=== PATIENT | female | born 1970 | race Caucasian/White ===

== ENCOUNTER 2017-11-11 01:05 | Inpatient (IN) | payer MEDICARE ==
[2017-11-11] VITALS (22 sets, daily range): BP systolic 87–145; BP diastolic 43–88; BMI 53.3
[~2017-11-11] VITALS: Ht 167.6 cm; Wt 150.3 kg
[2017-11-11] MEDS ORDERED: ALLOPURINOL PO (01:28)
[2017-11-11] MEDS ORDERED: CYMBALTA60 MG PO (03:22)
[2017-11-11] MEDS ORDERED: BUSPAR 15 MG TA15 MG PO (03:22)
[2017-11-11] MEDS ORDERED: NEURONTIN600 MG PO (03:24)
[2017-11-11] MEDS ORDERED: LASIX80 MG PO (03:24)
[2017-11-11] MEDS ORDERED: NORCO 10-325 TA1 TAB PO (03:25)
[2017-11-11] MEDS ORDERED: ATARAX 25 MG TA25 MG PO (03:28)
[2017-11-11] MEDS ORDERED: IPRAT-ALBUT 0.5-3 ML IH (03:31)
[2017-11-11] MEDS ORDERED: TOUJEO SOL300 UNIT/1 SC (03:33)
[2017-11-11] MEDS ORDERED: TRAZODONE HCL150 MG PO (03:34)
[2017-11-11] MEDS ORDERED: TRESIBA FL100 UNIT/1 SC (03:37)
[2017-11-11] MEDS ORDERED: REVATIO20 MG PO (03:38)
[2017-11-11] MEDS ORDERED: K-DUR20 MEQ PO (03:39)
[2017-11-11] MEDS ORDERED: OMEPRAZOLE20 M1 PO (03:39)
[2017-11-11] MEDS ORDERED: SYNTHROID175 MCG PO (03:40)
[2017-11-11] MEDS ORDERED: GLUCOPHAGE1000 MG PO (03:40)
[2017-11-11] MEDS ORDERED: METOPROLOL TART50 MG PO (03:41)
[2017-11-11 08:18] LABS: BASOPHILS 0.1 % (0-2); EOSINOPHILS 0.5 % (0-7); HEMATOCRIT 29.2 % (36.0-48.0); HEMOGLOBIN 9.4 g/dL (12-16); IMMATURE GRANULOCYTES 0.4 % (0-5); LYMPHOCYTES 11.8 % (15-50); MCH 28.7 pg (26.0-34.0); MCHC 32.2 g/dL (31.0-37.0); MEAN PLATELET VOLUME 9.6 fL (7.4-10.4); MONOCYTES 8.2 % (2-11); PLATELET COUNT 192 10x3/uL (130-400); RBC 3.28 10x6/uL (4.00-5.40); RDW 25.2 % (11.5-14.5); WBC 13.4 10x3/uL (4.8-10.8)
[2017-11-11 08:26] LABS: ALBUMIN 2.3 g/dL (3.4-5.0); ANION GAP 20.5 mmol/L (8-16); BILIRUBIN - TOTAL 0.88 mg/dL (0.2-1.3); CALCIUM 7.5 mg/dL (8.5-10.1); CARBON DIOXIDE 20.3 mmol/L (21.0-32.0); CREATININE - SERUM 3.5 mg/dL (0.6-1.3); MAGNESIUM - SERUM 1.5 mg/dL (1.8-2.4); PHOSPHOROUS 6.1 mg/dL (2.5-4.9); POTASSIUM - SERUM 3.8 mmol/L (3.5-5.1); PROTEIN - SERUM 5.5 g/dL (6.4-8.2)
[2017-11-11 12:17] LABS: % SATURATION 12 % (15-55); IRON 33 ug/dl (35-150); TOTAL IRON BIND CAPACITY 267 ug/dl (260-445); UNSAT IRON BIND CAPACITY 234 ug/dl (150-375)
[2017-11-11 12:33] LABS: THYROID STIMULATING HORMONE 2.83 uIU/mL (0.36-3.74)
[2017-11-11 13:38] LABS: CREATININE - URINE 86.8 mg/dL (30-125); PROTEIN - URINE 472.8 mg/dL (0.0-11.9)
[2017-11-11 13:42] LABS: APPEARANCE CLOUDY (CLEAR); BILIRUBIN NEGATIVE (NEGATIVE); COLOR DK YELLOW (YELLOW); GLUCOSE NEGATIVE (NEGATIVE); KETONE NEGATIVE (NEGATIVE); NITRITE NEGATIVE (NEGATIVE); PROTEIN 3+ mg/dL (NEGATIVE); UROBILINOGEN NORMAL (NORMAL)
[2017-11-11 13:43] LABS: BACTERIA MODERATE /hpf (NONE SEEN); EPITHELIAL CELLS 0-5 /hpf (0-5); WHITE CELLS - URINE 0-5 /hpf (0-5)
[2017-11-11 13:44] LABS: AMORPHOUS SEDIMENT <1+ /lpf (NONE SEEN)
[2017-11-12] VITALS (74 sets, daily range): BP systolic 68–183; BP diastolic 33–587
[2017-11-12 04:31] LABS: BASOPHILS 0.1 % (0-2); EOSINOPHILS 0.4 % (0-7); HEMATOCRIT 28.4 % (36.0-48.0); IMMATURE GRANULOCYTES 0.4 % (0-5); LYMPHOCYTES 5.1 % (15-50); MCH 28.1 pg (26.0-34.0); MCHC 31.7 g/dL (31.0-37.0); MCV 88.8 fL (80.0-100.0); MONOCYTES 6.3 % (2-11); NEUTROPHILS 87.7 % (40-80); PLATELET COUNT 187 10x3/uL (130-400); RDW 24.9 % (11.5-14.5); WBC 14.2 10x3/uL (4.8-10.8)
[2017-11-12 04:45] LABS: ANION GAP 19.4 mmol/L (8-16); CALCIUM 7.7 mg/dL (8.5-10.1); CARBON DIOXIDE 22.5 mmol/L (21.0-32.0); CREATININE - SERUM 3.9 mg/dL (0.6-1.3); MAGNESIUM - SERUM 1.6 mg/dL (1.8-2.4); POTASSIUM - SERUM 3.9 mmol/L (3.5-5.1)
[2017-11-12 10:06] LABS: BASOPHILS 0.2 % (0-2); EOSINOPHILS 0.2 % (0-7); HEMATOCRIT 30.3 % (36.0-48.0); HEMOGLOBIN 9.6 g/dL (12-16); IMMATURE GRANULOCYTES 1.5 % (0-5); LYMPHOCYTES 6.3 % (15-50); MCH 28.5 pg (26.0-34.0); MCHC 31.7 g/dL (31.0-37.0); MCV 89.9 fL (80.0-100.0); MEAN PLATELET VOLUME 9.8 fL (7.4-10.4); MONOCYTES 6.9 % (2-11); NEUTROPHILS 84.9 % (40-80); PLATELET COUNT 208 10x3/uL (130-400); RBC 3.37 10x6/uL (4.00-5.40); RDW 25.5 % (11.5-14.5)
[2017-11-12 10:07] LABS: WBC 19.3 10x3/uL (4.8-10.8)
[2017-11-12 10:11] LABS: APTT 31.9 SECONDS (22.8-39.4); INR 1.4 (0.85-1.17); PROTIME 16.7 SECONDS (11.6-15.0)
[2017-11-12 10:12] LABS: ALBUMIN 2.2 g/dL (3.4-5.0); ANION GAP 21.6 mmol/L (8-16); BILIRUBIN - TOTAL 0.99 mg/dL (0.2-1.3); CALCIUM 7.2 mg/dL (8.5-10.1); CARBON DIOXIDE 24.9 mmol/L (21.0-32.0); CREATININE - SERUM 4.1 mg/dL (0.6-1.3); MAGNESIUM - SERUM 1.7 mg/dL (1.8-2.4); PROTEIN - SERUM 5.2 g/dL (6.4-8.2)
[2017-11-12 10:15] LABS: POTASSIUM - SERUM 4.5 mmol/L (3.5-5.1)
[2017-11-12 10:19] LABS: D-DIMER-QUANTITATIVE 4.4 ug/mLFEU (0.20-0.54)
[2017-11-13] VITALS (91 sets, daily range): BP systolic 65–120; BP diastolic 37–622; BMI 52.8
[2017-11-13 04:47] LABS: BASOPHILS 0.1 % (0-2); EOSINOPHILS 1.5 % (0-7); HEMATOCRIT 27.4 % (36.0-48.0); HEMOGLOBIN 8.5 g/dL (12-16); IMMATURE GRANULOCYTES 0.7 % (0-5); LYMPHOCYTES 7.3 % (15-50); MCH 27.9 pg (26.0-34.0); MCV 89.8 fL (80.0-100.0); MEAN PLATELET VOLUME 9.8 fL (7.4-10.4); MONOCYTES 7.3 % (2-11); NEUTROPHILS 83.1 % (40-80); RBC 3.05 10x6/uL (4.00-5.40); RDW 25.4 % (11.5-14.5)
[2017-11-13 04:53] LABS: PLATELET COUNT 163 10x3/uL (130-400); WBC 12.6 10x3/uL (4.8-10.8)
[2017-11-13 04:56] LABS: INR 1.47 (0.85-1.17); PROTIME 17.3 SECONDS (11.6-15.0)
[2017-11-13 05:22] LABS: CALCIUM 7.5 mg/dL (8.5-10.1); CARBON DIOXIDE 21.6 mmol/L (21.0-32.0); CREATININE - SERUM 4.2 mg/dL (0.6-1.3); MAGNESIUM - SERUM 1.7 mg/dL (1.8-2.4); PHOSPHOROUS 6.3 mg/dL (2.5-4.9); VANCOMYCIN - RANDOM 7.6 ug/mL (10.0-20.0); VANCOMYCIN - TROUGH 7.6 ug/mL (10.0-20.0)
[2017-11-13 05:23] LABS: ANION GAP 18.1 mmol/L (8-16); POTASSIUM - SERUM 3.7 mmol/L (3.5-5.1); TROPONIN-I 0.237 ng/mL (0.000-0.060)
[2017-11-14] VITALS (64 sets, daily range): BP systolic 56–116; BP diastolic 20–92; Ht 167.6 cm; Wt 150.3 kg
[2017-11-14 05:09] LABS: BASOPHILS 0.1 % (0-2); EOSINOPHILS 1.1 % (0-7); HEMATOCRIT 30.9 % (36.0-48.0); HEMOGLOBIN 9.7 g/dL (12-16); IMMATURE GRANULOCYTES 2.2 % (0-5); LYMPHOCYTES 15.1 % (15-50); MCH 28.8 pg (26.0-34.0); MCHC 31.4 g/dL (31.0-37.0); MCV 91.7 fL (80.0-100.0); MEAN PLATELET VOLUME 10.3 fL (7.4-10.4); NEUTROPHILS 71.5 % (40-80); RBC 3.37 10x6/uL (4.00-5.40); RDW 25.4 % (11.5-14.5)
[2017-11-14 05:10] LABS: PLATELET COUNT 279 10x3/uL (130-400)
[2017-11-14 05:30] LABS: ANION GAP 21.5 mmol/L (8-16); CALCIUM 7.8 mg/dL (8.5-10.1); CARBON DIOXIDE 19.3 mmol/L (21.0-32.0); CREATININE - SERUM 4.7 mg/dL (0.6-1.3); VANCOMYCIN - RANDOM 12.8 ug/mL (10.0-20.0)
[2017-11-14 05:41] LABS: MAGNESIUM - SERUM 2.3 mg/dL (1.8-2.4); POTASSIUM - SERUM 4.8 mmol/L (3.5-5.1)
[2017-11-14 11:28] LABS: FOLATE (FOLIC ACID) - SERUM 5.6 ng/mL (>3.0)
[2017-11-14 13:17] LABS: ALBUMIN 1.9 g/dL (3.4-5.0); ALKALINE PHOSPHATASE 204 U/L (46-116); ALT (SGPT) 20 U/L (10-68); BILIRUBIN - TOTAL 1.67 mg/dL (0.2-1.3); CALC OSMOLALITY 272 mosm/kg (275-300); CALCIUM 7.3 mg/dL (8.5-10.1); CARBON DIOXIDE 16.7 mmol/L (21.0-32.0); CHLORIDE - SERUM 96 mmol/L (98-107); CREATININE - SERUM 5.1 mg/dL (0.6-1.3); POTASSIUM - SERUM 5.5 mmol/L (3.5-5.1); PROTEIN - SERUM 5.4 g/dL (6.4-8.2); SODIUM 130 mmol/L (136-145); UREA NITROGEN 49 mg/dL (7-18); eGFR NON AFRICAN AMERICAN 10 mL/min (90-120)
[2017-11-14 13:28] LABS: HEMATOCRIT 33.8 % (36.0-48.0); HEMOGLOBIN 10.3 g/dL (12-16); MCH 28.9 pg (26.0-34.0); MCHC 30.5 g/dL (31.0-37.0); MCV 94.7 fL (80.0-100.0); MEAN PLATELET VOLUME 10.3 fL (7.4-10.4); PLATELET COUNT 287 10x3/uL (130-400); RBC 3.57 10x6/uL (4.00-5.40); RDW 25.8 % (11.5-14.5); WBC 24.4 10x3/uL (4.8-10.8)
[2017-11-14 13:29] LABS: GLUCOSE 87 mg/dL (74-106)
[2017-11-14 13:32] LABS: CKMB 1.3 U/L (0.0-3.6); CREATINE KINASE 649 UL (21-215)
[2017-11-14 13:34] LABS: TROPONIN-I 1.184 ng/mL (0.000-0.060)
[2017-11-14 14:06] LABS: BASOPHILS 1 % (0-2); LYMPHOCYTES 8 % (15-50); MONOCYTES 1 % (2-11); NEUTROPHILS 86 % (40-80)
[2017-11-14 14:07] LABS: POIKILOCYTOSIS 2+
[2017-11-14 14:08] LABS: HYPOCHROMASIA 2+; ROULEAUX 1+
[2017-11-14 14:09] LABS: PLATELET ESTIMATE NORMAL
== END 2017-11-14 17:00 | DRG 208 ==
LOC: D.ICU 01:05
PROVIDERS: Internal Medicine Nephrology; Internal Medicine Pulmonary Disease; Orthopaedic Surgery
PROC: 5A09357 Assistance with Respiratory Ventilation, Less than 24 Consecutive Hours, Continuous Positive Airway Pressure (ICD-10-PCS; 2017-11-11)
PROC: 5A1945Z Respiratory Ventilation, 24-96 Consecutive Hours (ICD-10-PCS; principal; 2017-11-12)
PROC: 0BH17EZ Insertion of Endotracheal Airway into Trachea, Via Natural or Artificial Opening (ICD-10-PCS; 2017-11-12)
DX: J96.21 Acute and chronic respiratory failure with hypoxia (principal); A41.9 Sepsis, unspecified organism; I50.33 Acute on chronic diastolic (congestive) heart failure; G93.40 Encephalopathy, unspecified; N17.0 Acute kidney failure with tubular necrosis; R65.21 Severe sepsis with septic shock; J18.9 Pneumonia, unspecified organism; E87.2 Acidosis; N39.0 Urinary tract infection, site not specified; I13.0 Hypertensive heart and chronic kidney disease with heart failure and stage 1 through stage 4 chronic kidney disease, or unspecified chronic kidney disease; Z68.43 Body mass index [BMI] 50.0-59.9, adult; E66.01 Morbid (severe) obesity due to excess calories; I11.0 Hypertensive heart disease with heart failure; G47.33 Obstructive sleep apnea (adult) (pediatric); I27.20 Pulmonary hypertension, unspecified; E11.649 Type 2 diabetes mellitus with hypoglycemia without coma; R60.1 Generalized edema; E11.22 Type 2 diabetes mellitus with diabetic chronic kidney disease; N18.9 Chronic kidney disease, unspecified; D50.9 Iron deficiency anemia, unspecified; K72.90 Hepatic failure, unspecified without coma; G62.9 Polyneuropathy, unspecified; I46.9 Cardiac arrest, cause unspecified; M10.9 Gout, unspecified; Z95.2 Presence of prosthetic heart valve; E11.40 Type 2 diabetes mellitus with diabetic neuropathy, unspecified; E11.21 Type 2 diabetes mellitus with diabetic nephropathy